=== PATIENT | female | born 1930 | race Caucasian/White ===

== ENCOUNTER 2017-02-25 06:00 | Day surgery (SDC) | payer MEDICARE, OTHER ==
[~2017-02-25 06:00] MED LIST: ACETAZOLAMIDE 500 MG CER ONE
[2017-02-25 06:19] VITALS: PULSE 70
[2017-02-25] MEDS: CYCLOPENTOLATE 1% SOL ONE ×2 (06:26→06:39)
[2017-02-25] MEDS: PHENYLEPHRINE HCL 10% OPHTHAL SOL ONE ×2 (06:26→06:38)
[2017-02-25] MEDS: PROPARACAINE HCL 0.5% OPHTHALMIC SOL ONE ×3 (06:26→07:38)
[2017-02-25] MEDS ORDERED: LIDOCAINE HCL 1% MPF SOL ONE (06:46)
[2017-02-25] MEDS ORDERED: BSS 500 ML 500 ML IR ONE (06:46)
[2017-02-25] MEDS ORDERED: POVIDONE IODINE 5% SOL ONE (06:46)
[2017-02-25] MEDS ORDERED: MIDAZOLAM 2 MG/2 ML SOL ONE (07:01)
[2017-02-25 08:11] VITALS: BP 119/72; RESP 18; TEMP 97.6; O2SAT 95
== END 2017-02-25 08:36 | disposition home or self-care (01) | DRG 125 ==
LOC: SURG 06:00
PROVIDERS: ATTEND Ophthalmology
DX: H25.9 Unspecified age-related cataract (principal)
CPT/HCPCS: J2250; J2001